=== PATIENT | male | born 1970 | race Caucasian/White ===

== ENCOUNTER 2017-03-25 19:39 | Emergency (ER) | payer BC ==
[2017-03-25 20:09] VITALS: BP 114/74
[2017-03-25] MEDS ORDERED: Ketorolac 60 MG/2 ML SDV IM ONE (20:15)
[2017-03-25] MEDS ORDERED: Take Home: Cyclobenzaprine 10 MG Tab, 4 Tab Pack PO ONE (21:04)
[2017-03-25] MEDS ORDERED: Take Home: Acetaminophen/HYDROcodone 325-5 MG, 5 Tab Pack PO ONE (21:04)
--- NOTE | 2017-03-26 00:20 | ER ---
Date of Service: 03/25/2017 SUBJECTIVE: Cristofer presents to the emergency room with complaints of low back pain that he has been experiencing since Thursday. The patient states that he has been doing some increased lifting but denies any specific injury to his back. He states that he is not experiencing any paresthesia in his lower extremities. He denies any saddle anesthesia or urinary or fecal incontinence. The patient states that the pain is located primarily in the left side of his back. The patient states that this discomfort is located primarily in the right side of his back. He states that he has had some intermittent left-sided lumbar sacral back pain, with radiation in the posterior aspect of his left leg in the past but this has resolved on its own. He states that he has not ever had any imaging of his lower back. PAST MEDICAL HISTORY: Sepsis secondary to pneumonia and severe tonsillitis. MEDICATIONS: None. ALLERGIES: NKDA. REVIEW OF SYSTEMS: General: No fever or chills. HEENT: No sore throat, rhinorrhea, congestion. Respiratory: No shortness of breath. Cardiac: Denies any substernal chest pain. No jaw, arm, neck, or back pain. GI: No nausea, vomiting, or diarrhea. No melena, hematochezia, or hematemesis. : Denies any dysuria. Musculoskeletal: Please see history of present illness. Neurologic: No fainting, blackouts, or lightheadedness. Again, the patient denies any saddle anesthesia, incontinence, or other signs of cauda equina. PHYSICAL EXAMINATION: General: This is a 47-year-old male patient who is in no acute distress. Vital Signs: Blood pressure is 114/74, heart rate 70, temperature is 36.2, and respiratory rate 16, O2 saturations 96%. Skin: Warm, pink, and dry. Musculoskeletal: He does have significant muscle spasm to the lower lumbar paraspinal muscles. No obvious step-offs or deformity noted. His straight leg raise is positive on the right. His patellar and posterior tibialis reflexes are 2+. Neurovascular: Circulation, sensation, and motor function are all within normal limits in the distal portion of the lower extremities. EMERGENCY ROOM COURSE: The patient was given injection of Toradol 60 mg IM and Norflex 60 mg IM. After approximately 45 minutes, he did report significant improvement in his discomfort. He remained stable under my care in the emergency room. ASSESSMENT: Low back pain. PLAN: The patient was given extensive handout with exercises for low back pain. Also, did start him on a short course of [place] 5/325 with instructions to take 1 every 6 hours as needed for pain. Also was given a prescription for Flexeril 10 mg 3 times a day for pain. I would like him to follow up in the clinic in the next 10 to 14 days if not gradually improving. All questions were answered. MWK: 03/25/2017 21:15:21 MODL: 03/26/2017 00:15:11 /[id number]
== END 2017-03-25 21:17 | disposition home or self-care (01) ==
LOC: VM.ED 19:39
DX: M54.5 Low back pain (principal); Z87.01 Personal history of pneumonia (recurrent)
CPT/HCPCS: 81001; 96372; 99283; A9270; J1885; J2360

== ENCOUNTER 2017-05-20 10:10 | Emergency (ER) | payer BC ==
[2017-05-20 10:36] VITALS: BP 128/77
--- NOTE | 2017-05-20 10:52 | EDM.PDOC ---
ED HPI GENERAL MEDICAL PROBLEM - General Chief Complaint: Back Pain or Injury Stated Complaint: low back pain with radiation into L leg Time Seen by Provider: 05/20/17 10:48 Source of Information: Reports: Patient History Limitations: Reports: No Limitations - History of Present Illness INITIAL COMMENTS - FREE TEXT/NARRATIVE: PtCindy has been experiencing low back pain for approx. 5 months. He was seen in ER on 03-26-17 with the same symptoms, except the pain was worse on the right at that time. He has had constant radiculopathy in the L lower extremity for approx. 5 months. It was extending into his calf, but now only extends into the posterior left thigh. Has not had an MRI and has used the chiropractor with minimal relief. Onset: Gradual, Unknown/Unsure Onset Date: 05/20/17 Onset Time: 10:52 Location: Reports: Back, Radiates to (left lower extremity) Quality: Reports: Ache Severity: Moderate Improves with: Reports: None Worsens with: Reports: Movement Associated Symptoms: Reports: No Other Symptoms Treatments ICE PULLER: Reports: NSAIDS Left Lower Back Pain Score (Numeric/FACES): 4 - Related Data Allergies Allergy/AdvReac Type Severity Reaction Status Date / Time No Known Allergies Allergy Verified 03/25/17 20:06 Home Meds: Home Meds . [No Known Home Meds] 06/20/16 [History] Past Medical History - Past Health History Medical/Surgical History: Denies Medical/Surgical History HEENT History: Reports: Other (See Below) Other HEENT History: Septic from strep throat Cardiovascular History: Reports: Heart Murmur Gastrointestinal History: Reports: GERD, Hiatal Hernia Musculoskeletal History: Reports: Back Pain, Chronic Neurological History: Reports: Migraines - Infectious Disease History Infectious Disease History: Reports: Chicken Pox - Past Surgical History GI Surgical History: Reports: Appendectomy Neurological Surgical History: Reports: None Social & Family History - Family History Family Medical History: Noncontributory HEENT: Reports: None GI: Reports: Diverticulitis : Reports: None Musculoskeletal: Reports: Arthritis Neurological: Reports: None Psychiatric: Reports: None Endocrine/Metabolic: Reports: Diabetes, Type I Hematologic: Reports: None - Tobacco Use Smoking Status *Q: Current Every Day Smoker Years of Tobacco use: 30 Packs/Tins Daily: 0.5 Used Tobacco, but Quit: No Second Hand Smoke Exposure: No - Caffeine Use Caffeine Use: Reports: Soda Other Caffeine Use: 4 Mountin Dew - Recreational Drug Use Recreational Drug Use: No ED ROS GENERAL - Review of Systems Review Of Systems: See Below Constitutional: Reports: No Symptoms HEENT: Reports: No Symptoms Respiratory: Reports: No Symptoms Cardiovascular: Reports: No Symptoms Endocrine: Reports: No Symptoms GI/Abdominal: Reports: No Symptoms : Reports: No Symptoms (denies any saddle anesthesia or incontinence) Musculoskeletal: Reports: Back Pain Skin: Reports: No Symptoms Neurological: Reports: Paresthesia Psychiatric: Reports: No Symptoms Hematologic/Lymphatic: Reports: No Symptoms Immunologic: Reports: No Symptoms ED EXAM,LOWER BACK PAIN/INJURY - Physical Exam Exam: See Below Exam Limited By: No Limitations General Appearance: Alert Back Exam: Normal Inspection, Decreased Range of Motion, Muscle Spasm Extremities: Normal Inspection, Normal Range of Motion Neurological: Alert, Normal Mood/Affect, Normal Dorsiflexion, Normal Plantar Flexion, Straight Leg Raise (L) Psychiatric: Normal Affect Skin Exam: Warm, Dry Course - Vital Signs Last Recorded V/S: Last Vital Signs Temp 35.7 C 05/20/17 10:15 Pulse 77 05/20/17 10:15 Resp 16 05/20/17 10:15 BP 128/77 05/20/17 10:15 Pulse Ox Departure - Departure Time of Disposition: 10:55 Disposition: Home, Self-Care 01 Condition: Good Clinical Impression: Sciatica, Low back pain - Discharge Information Instructions: Back Pain, Adult, [id number] Referrals: Milagros Caballero NP [Ordering Only Provider] - Forms: ED Department Discharge Additional Instructions: Follow-up with Felisa Caballero today at 1:20 PM to establish care and get set up for an MRI - Problem List & Annotations (1) Sciatica SNOMED Code(s): 65343744 Code(s): M54.30 - SCIATICA, UNSPECIFIED SIDE Status: Acute
== END 2017-05-20 11:10 | disposition home or self-care (01) ==
LOC: VM.ED 10:10
DX: M54.40 Lumbago with sciatica, unspecified side (principal); F17.210 Nicotine dependence, cigarettes, uncomplicated; K21.9 Gastro-esophageal reflux disease without esophagitis; Z90.49 Acquired absence of other specified parts of digestive tract
CPT/HCPCS: 99283

== ENCOUNTER 2021-10-20 13:54 | Observation (INO) | payer BC ==
[2021-10-20 15:18] LABS: CHLORIDE,CL 105 mmol/L (98-107); SODIUM,NA 137 mmol/L (136-145)
[2021-10-20 15:20] LABS: ANION GAP 7.8 mmol/L (5-15); PTT,PARTIAL THROMBOPLSTIN TIME 23.7 SEC (20.5-30.9)
[2021-10-20] MEDS ORDERED: Sodium Chloride 0.9% 10 ML Syringe FLUSH PRN (16:04)
[2021-10-20] MEDS ORDERED: cefTRIAXone 2 GM Vial IVPUSH ONE (16:06)
[2021-10-20] MEDS ORDERED: Ondansetron 4 MG/2 ML SDV IVPUSH ONE (16:46)
[2021-10-20] MEDS ORDERED: oxyCODONE 5 MG Tab PO PRN (17:01)
[2021-10-20] MEDS: Enoxaparin 120 MG/0.8 ML Syringe SUBCUT SCH (17:57)
[2021-10-20] MEDS: Acetaminophen 325 MG Tab PO PRN (19:18)
[2021-10-21] MEDS: Acetaminophen 325 MG Tab PO PRN ×2 (03:01→10:46)
[2021-10-21] MEDS: Enoxaparin 120 MG/0.8 ML Syringe SUBCUT SCH (05:34)
[2021-10-21 10:51] VITALS: BP 135/71; PULSE 60
[2021-10-21] MEDS ORDERED: Iopamidol 755 Mg/ML 100 ML Bottle IVPUSH ONE (11:00)
[2021-10-21] MEDS ORDERED: ceFAZolin 1 GM Vial IVPUSH SCH (17:00)
[2021-10-21] MEDS ORDERED: Apixaban 2.5 MG Tab PO SCH (20:00)
== END 2021-10-21 13:35 | disposition home or self-care (01) ==
LOC: VM.ED 13:54 → VM.MS 16:02
PROVIDERS: ADMIT Physician Assistant; ATTEND Physician Assistant
DX: L03.115 Cellulitis of right lower limb (principal); R79.89 Other specified abnormal findings of blood chemistry; F17.210 Nicotine dependence, cigarettes, uncomplicated; R07.89 Other chest pain; R06.09 Other forms of dyspnea; G43.909 Migraine, unspecified, not intractable, without status migrainosus; U09.9 Post COVID-19 condition, unspecified; Z90.49 Acquired absence of other specified parts of digestive tract; Z20.822 Contact with and (suspected) exposure to COVID-19; Z79.899 Other long term (current) drug therapy
CPT/HCPCS: 36415; 71275; 80053; 83605; 84484; 85025; 85027; 85379; 85610; 85730; 86140; 93005; 96372; 96374; 96375; 99285-25; A9270-GY; G0378; J0696; J1650; J2405; Q9967; U0002

== ENCOUNTER 2024-12-27 20:44 | Emergency (ER) | payer BC ==
[2024-12-27 21:11] VITALS: BP 126/78; PULSE 78
[2024-12-27] MEDS: cefTRIAXone 1 GM, Lidocaine 1% 2.1 ML IM ONE (21:23)
[2024-12-27] MEDS: Lidocaine 1% 30 ML SDV INJECT ONE (21:24)
== END 2024-12-27 21:36 | disposition home or self-care (01) ==
LOC: VM.ED 20:44
DX: L60.0 Ingrowing nail (principal); L03.115 Cellulitis of right lower limb; F17.200 Nicotine dependence, unspecified, uncomplicated; Z90.49 Acquired absence of other specified parts of digestive tract
CPT/HCPCS: 11765; 96372; 99283; J0696; J2003